=== PATIENT | male | born 1955 | race Caucasian/White ===

== ENCOUNTER 2021-01-22 16:23 | Emergency (ER) | payer SELFPAY ==
[~2021-01-22] VITALS: Ht 182.9 cm; Wt 72.7 kg
[2021-01-22 16:32] VITALS: PULSE 103; TEMP 98.2
[2021-01-22] MEDS ORDERED: NORCO 325 MG-51 TAB PO (17:08)
[2021-01-22] MEDS ORDERED: PEN-VEE K500 MG PO (17:08)
== END 2021-01-22 17:25 | disposition home or self-care (01) ==
LOC: COL.ER 16:23
DX: K08.89 Other specified disorders of teeth and supporting structures (principal); F17.210 Nicotine dependence, cigarettes, uncomplicated

== ENCOUNTER 2021-12-25 06:59 | Outpatient (CLI) | payer MEDICARE, MEDICAID ==
[2021-12-25] VITALS (13 sets, daily range): BP systolic 112–136; BP diastolic 73–88; PULSE 74–106; TEMP 98
[~2021-12-25] VITALS: Ht 182.9 cm; Wt 68.0 kg
[~2021-12-25 06:59] MED LIST: GUAIFENESIN DA473 ML PO; NORCO 325 MG-51 TAB PO; PEN-VEE K500 MG PO; PREDNISONE20 MG PO; PROVENTIL0.09 MG/A1 IH
== END 2021-12-25 10:55 | disposition home or self-care (01) ==
LOC: COL.RAD 06:59
DX: R91.8 Other nonspecific abnormal finding of lung field (principal); Z98.890 Other specified postprocedural states
CPT/HCPCS: 32106

== ENCOUNTER 2022-04-11 10:17 | Day surgery (SDC) | payer MEDICARE, MEDICAID ==
[~2022-04-11] VITALS: Ht 175.3 cm; Wt 55.1 kg
--- NOTE | 2022-04-11 10:45 | NUR ---
REPEAT BLOOD PRESSURE 182/85, 75. RESTING WITH EYES CLOSED AND OFFERS NO COMPLAINTS.
[2022-04-11] MEDS ORDERED: IPRATROPIUM BROM3 M1 IH (11:27)
[2022-04-11] MEDS ORDERED: ZOFRAN8 MG PO (11:27)
[2022-04-11] MEDS ORDERED: COMPAZINE 110 MG/TAB PO (11:28)
--- NOTE | 2022-04-11 11:30 | NUR ---
ASSISTED UP TO THE BATHROOM AND RETURNS TO ROOM. REQUESTS TO SIT UP IN CHAIR. CALL LIGHT IN REACH.
[2022-04-11 11:31] LABS: HEMOGLOBIN 11.1 g/dl (13.5-18.0); MEAN CELL VOLUME 87 fl (80.0-100.0); MEAN CORPUSCULAR HEMOGLOBIN 28 pg (27-31); MEAN CORPUSCULAR HGB CONC 32 g/dl (33.0-37.0); MEAN PLATELET VOLUME 8.4 fl (7.4-10.4); PLATELET COUNT 356 K/mm3 (130-400); REDCELL DISTRIBUTION WIDTH-CV 15.9 % (11.5-14.5)
[2022-04-11 11:48] LABS: MAGNESIUM 1.9 mg/dL (1.6-2.6)
[2022-04-11 11:50] LABS: HEMATOCRIT 34.7 % (42.0-52.0)
[2022-04-11 11:52] LABS: ALBUMIN 3.3 gm/dL (3.4-4.8); BILIRUBIN,TOTAL 0.3 mg/dL (0.2-1.2); CALCIUM 9.5 mg/dL (8.4-10.2); CREATININE, serum 0.67 mg/dL (0.72-1.25); POTASSIUM 3.7 mmol/L (3.5-4.5); TOTAL PROTEIN 6.9 gm/dL (6.2-8.1)
[2022-04-11 12:10] LABS: BAND 4 % (0-10); EOSINOPHIL 1 % (0-4); NEUTROPHILS 73 % (42.0-75.2)
[2022-04-11 12:25] VITALS: BP 125/80; PULSE 93; TEMP 97.5
[2022-04-11 12:52] LABS: LYMPHOCYTE 17 % (20.0-51.0)
[2022-04-11 13:01] LABS: PLATELET ESTIMATE NORMAL (NORMAL)
[2022-04-11 13:16] VITALS: BP 107/70; PULSE 71
--- NOTE | 2022-04-11 13:16 | NUR ---
PATIENT RETURNS TO ROOM 2 PER CART FROM SURGERY ACCOMPANIED BY ARISTEO RN AND URBAN PEREZ. DRESSING COVERING THE RIGHT PORT A CATH INSERTION SITE CLEAN AND DRY. DENIES PAIN OR NAUSEA. ALLOWED TO REST. IV FLUIDS INFUSING. TEMP 97.6 AND ROOM AIR SATS 99%. SIDERAILS UP X2 AND CALL LIGHT IN REACH.
[2022-04-11] MEDS ORDERED: NORCO 325 MG-51 TAB PO (13:20)
[2022-04-11 13:31] VITALS: BP 101/75; PULSE 72
--- NOTE | 2022-04-11 13:31 | NUR ---
CONTINUES TO REST WITHOUT COMPLAINTS OF PAIN OR NAUSEA.
[2022-04-11 13:46] VITALS: BP 107/61; PULSE 72
--- NOTE | 2022-04-11 13:46 | NUR ---
AWAKE AND ALERT. SIPPING ON COFFEE AND WATER.
--- NOTE | 2022-04-11 13:57 | NUR ---
EATING MUFFIN AND SIPPING ON COFFEE. IV TO INT.
--- NOTE | 2022-04-11 14:55 | NUR ---
INT DISCONTINUED AND SITE IS FREE OF REDNESS OR SWELLING. PATIENT DRESSING SELF.
--- NOTE | 2022-04-11 15:04 | NUR ---
DISMISSAL INSTRUCTIONS GIVEN AND SIGNED. RIDE WAS NOTIFIED.
--- NOTE | 2022-04-11 15:10 | NUR ---
DISMISSED TO HOME AND TAKEN TO THE FRONT DOOR PER WHEELCHAIR AND ASSISTED INTO VEHICLE WITH INSTRUCTIONS IN HAND.
== END 2022-04-11 15:10 | disposition home or self-care (01) ==
LOC: SDCO 10:17
PROVIDERS: Internal Medicine; Surgery
DX: C34.12 Malignant neoplasm of upper lobe, left bronchus or lung (principal); C77.1 Secondary and unspecified malignant neoplasm of intrathoracic lymph nodes; Z79.899 Other long term (current) drug therapy; Z87.891 Personal history of nicotine dependence
CPT/HCPCS: C1788; J0690; J1644; J2405; J2704; J3010; J7120